=== PATIENT | female | born 1970 | race African-American/Black ===

== ENCOUNTER 2016-05-12 22:18 | Emergency (ER) | payer OTHER ==
[~2016-05-12] VITALS: Ht 162.6 cm; Wt 104.3 kg
--- NOTE | ~2016-05-12 | EKG ---
[place] [address] [facility] [place] [address] ELECTROCARDIOGRAM REPORT Name: JOELLE ARMSTRONG [facility] [id number] Admission: 05/12/16 Attend Phys: Discharge: 05/13/16 Date of : 74 Report #: [id number] THIS REPORT FOR: //name// [facility] ED Test Date: 2016-05-12 Test Time: 22:24:11 Pat Name: JOELLE ARMSTRONG Department: Room: Gender: F Site Acquisition Manager: EARLENE : 1970 Requested By: Salima Calles Order Number: [id number] MD: Lawrence Barker Measurements Intervals [place] Rate: 51 P: 1 SC: 208 QRS: -33 QRSD: 112 T: -78 QT: 420 QTc: 387 Interpretive Statements Sinus rhythm Borderline prolonged SC interval Left ventricular hypertrophy Nonspecific T abnormalities, diffuse leads No previous ECG available for comparison Electronically Signed On 05-13-2016 11:27:17 CDT by Lawrence Barker [email or web address] <ELECTRONICALLY SIGNED> By: Lawrence Barker MD 05/13/16 1127 2224 2224 Lawrence Barker MD /SEAN
--- NOTE | ~2016-05-12 | EKG ---
[place] [address] [facility] [employer] [place] [address] ELECTROCARDIOGRAM REPORT Name: JOELLE ARMSTRONG Room [facility]: [facility]P [facility] [id number] Admission: 05/12/16 Attend Phys: Discharge: 05/13/16 Date of : 74 Report #: [id number] THIS REPORT FOR: //name// [facility] ED Test Date: 2016-05-13 Test Time: 00:50:06 Pat Name: JOELLE ARMSTRONG Department: Room: Gender: F Fast Food Team Member: EARLENE : 1970 Requested By: Salima Calles Order Number: [id number] MD: Lawrence Barker Measurements Intervals [place] Rate: 52 P: 55 NC: 213 QRS: -25 QRSD: 117 T: -51 QT: 465 QTc: 433 Interpretive Statements Sinus rhythm Prolonged NC interval Left ventricular hypertrophy Nonspecific T abnormalities, diffuse leads No previous ECG available for comparison Electronically Signed On 05-13-2016 11:28:33 CDT by Lawrence Barker [email or web address] <ELECTRONICALLY SIGNED> By: Lawrence Barker MD 05/13/16 1128 0050 0050 Lawrence Barker MD /EPI
[~2016-05-12 22:18] MED LIST: AMBIEN 5 MG TABL5 M1 PO; AMLODIPINE BESY10 MG PO; BACTRIM DS TAB1 EACH PO; BENTYL20 MG PO; CEFTIN500 MG PO; CLIMARA TOP; CLONAZEPAM 0.50.5 M1; COLACE100 MG PO; DENIES ANY MEDS; EXCEDRIN CAPLE1 EACH; FISHOIL; FISHOIL PO; FLAGYL500 MG PO; HYDROCODON-ACE1 EAC1 PO; HYDROCODON-ACE1 EAC5 PO; IBUPROFEN 600600 M1 PO; IBUPROFEN 800800 M1 PO; IRON325 PO; KEFLEX500 MG PO; LIORESAL 10 MG10 MG PO; LISINOPRIL-HCT1 EAC1 PO; LISINOPRIL-HCT1 EACH PO; MOM; NORCO 5-325 TA1 EACH PO; NORVASC 5 MG TAB5 MG PO; PERCOCET 5-3251 EACH PO; PHENERGAN 25 MG25 MG PO; PREDNISONE 20 M20 M1 PO; PRILOSEC 20 MG20 MG PO; PROVENTIL HFA6.7 G1 INH; PULMICORT0.25 MG/3 INH; STEROID; TESSALON PERLE100 MG PO; TOPROL XL50 MG; VITAMIN D35000 UNIT; VITAMIN D400 UNI1 PO; ZANTAC 150MG T150 MG PO; ZOFRAN 4 MG ORAL4 M1 DIS; ZOFRAN ODT4 MG PO; ZOFRAN4 MG PO; ZPAK PO
[2016-05-12 22:46] LABS: ABSOLUTE NEUTROPHILS 3.5 thou/uL (1.4-8.2); BASOPHILS 0.8 % (0.0-2.0); EOSINOPHILS 1.7 % (0.0-3.0); HEMATOCRIT 38.2 % (37.0-47.0); HEMOGLOBIN 12.9 gm/dL (12.0-15.0); LYMPHOCYTES 26.5 % (24.0-44.0); MCH 28.7 pg (26.0-34.0); MCHC 33.8 g/dL (28.0-37.0); MCV 84.8 fL (80.0-100.0); MONOCYTES 5.9 % (1.0-8.0); PLATELET COUNT 230 thou/uL (150-400); POLYS 65.1 % (36.0-66.0); RBC 4.51 mil/uL (4.20-5.00); RDW 14.3 % (10.5-14.5); WBC 5.4 thou/uL (4.0-11.0)
[2016-05-12 22:47] LABS: MANUAL DIFF NO
[2016-05-12 22:56] LABS: ANION GAP 9 mmol/L (7-16); BUN 15 mg/dL (7-18); CALCIUM 8.6 mg/dL (8.5-10.1); CHLORIDE 109 mmol/L (98-107); CO2 26 mmol/L (21-32); CREATININE 0.9 mg/dL (0.6-1.3); GLUCOSE 103 mg/dL (70-99); POTASSIUM 3.5 mmol/L (3.5-5.1); SODIUM 144 mmol/L (136-145)
[2016-05-12 22:59] LABS: APTT 28.3 Seconds (24.5-32.8)
[2016-05-12 23:06] LABS: ALBUMIN 3.3 g/dL (3.4-5.0); ALKALINE PHOSPHATASE 81 U/L (46-116); NT-PRO BRAIN NAT PEPTIDE 36 pg/mL (<300); SGOT 20 U/L (15-37); SGPT 41 U/L (30-65); TOTAL BILIRUBIN 0.1 mg/dL (<0.1-1.0); TOTAL PROTEIN 6.3 g/dL (6.4-8.2); TROPONIN-I < 0.04 ng/mL (<0.04-0.07)
[2016-05-12 23:25] LABS: URINE BILIRUBIN NEGATIVE (Negative); URINE BLOOD TRACE (Negative); URINE COLOR YELLOW; URINE GLUCOSE-RANDOM* NEGATIVE (Negative); URINE KETONES NEGATIVE (Negative); URINE LEUKOCYTES-REFLEX NEGATIVE (Negative); URINE PROTEIN (DIPSTICK) NEGATIVE (Negative); URINE UROBILINOGEN 0.2 E.U./dl (0.2-1.0)
[2016-05-13] MEDS ORDERED: BUTALB-APAP-CA1 EACH PO (01:15)
[2016-05-13] MEDS ORDERED: ZOFRAN ODT4 MG PO (01:15)
[2016-05-13 01:32] VITALS: BP 147/85
== END 2016-05-13 01:34 | disposition home or self-care (01) ==
LOC: ER 22:18
PROVIDERS: Emergency Medicine
DX: G43.909 Migraine, unspecified, not intractable, without status migrainosus (principal); R07.9 Chest pain, unspecified; R11.0 Nausea; I10 Essential (primary) hypertension; K21.9 Gastro-esophageal reflux disease without esophagitis; Z85.89 Personal history of malignant neoplasm of other organs and systems; Z88.0 Allergy status to penicillin

== ENCOUNTER 2016-10-23 19:38 | Inpatient (IN) | payer OTHER ==
[~2016-10-23] VITALS: Ht 165.1 cm; Wt 113.4 kg
[~2016-10-23 19:38] MED LIST changes: +BUTALB-APAP-CA1 EACH PO
[2016-10-23 19:40] VITALS: BP 140/86
[2016-10-23 20:35] LABS: URINE BILIRUBIN NEGATIVE (Negative); URINE BLOOD 2+ (Negative); URINE COLOR YELLOW; URINE GLUCOSE-RANDOM* NEGATIVE (Negative); URINE KETONES NEGATIVE (Negative); URINE LEUKOCYTES-REFLEX NEGATIVE (Negative); URINE PROTEIN (DIPSTICK) NEGATIVE (Negative); URINE SPECIFIC GRAVITY 1.025 (1.003-1.035); URINE UROBILINOGEN 0.2 E.U./dl (0.2-1.0)
[2016-10-23 20:38] LABS: CRYSTALS None Seen /LPF (None Seen); SQUAMOUS 0-3 Few /LPF (0-3); URINE RBC 3-10 Few /HPF (0-2); URINE WBC-REFLEX None Seen /HPF (0-5)
[2016-10-23 21:01] LABS: ABSOLUTE NEUTROPHILS 4.1 thou/uL (1.4-8.2); BASOPHILS 0.7 % (0.0-2.0); EOSINOPHILS 1.4 % (0.0-3.0); HEMATOCRIT 38.6 % (37.0-47.0); HEMOGLOBIN 12.9 gm/dL (12.0-15.0); LYMPHOCYTES 22.8 % (24.0-44.0); MCH 28.4 pg (26.0-34.0); MCHC 33.4 g/dL (28.0-37.0); MCV 85.1 fL (80.0-100.0); MONOCYTES 3.9 % (1.0-8.0); PLATELET COUNT 249 thou/uL (150-400); POLYS 71.2 % (36.0-66.0); RBC 4.53 mil/uL (4.20-5.00); RDW 14.7 % (10.5-14.5); WBC 5.7 thou/uL (4.0-11.0)
[2016-10-23 21:05] LABS: MANUAL DIFF NO
[2016-10-23 21:08] LABS: ANION GAP 10 mmol/L (7-16); BUN 14 mg/dL (7-18); CALCIUM 9.2 mg/dL (8.5-10.1); CHLORIDE 106 mmol/L (98-107); CO2 28 mmol/L (21-32); CREATININE 0.7 mg/dL (0.6-1.0); GLUCOSE 120 mg/dL (74-106); SODIUM 144 mmol/L (136-145)
[2016-10-23 21:14] LABS: POTASSIUM 2.9 mmol/L (3.5-5.1)
[2016-10-23 21:15] LABS: ALKALINE PHOSPHATASE 91 U/L (46-116); DIRECT BILIRUBIN < 0.1 mg/dL (<0.1-0.3); SGOT 18 U/L (15-37); SGPT 38 U/L (30-65); TOTAL BILIRUBIN 0.2 mg/dL (<0.1-1.0); TOTAL PROTEIN 6.7 g/dL (6.4-8.2)
[2016-10-23 21:16] LABS: ALBUMIN 3.9 g/dL (3.4-5.0)
[2016-10-23 23:02] VITALS: BP 148/88
[2016-10-23 23:43] VITALS: BP 146/86
[2016-10-23 23:45] VITALS: BP 137/89
[2016-10-24 04:30] VITALS: BP 120/78
[2016-10-24 07:54] VITALS: BP 127/84
[2016-10-24 15:42] VITALS: BP 107/73
[2016-10-24 19:40] VITALS: BP 145/89
[2016-10-25 09:21] VITALS: BP 132/96
[2016-10-25] MEDS ORDERED: PHENERGAN 25 MG25 M1 PO (09:45)
[2016-10-25] MEDS ORDERED: HYDROCODON-ACE1 EAC8 PO (09:46)
[2016-10-25 12:58] VITALS: BP 132/96
== END 2016-10-25 14:43 | disposition home or self-care (01) | DRG 694 ==
LOC: ER 19:38 → 4E 22:52 → EROBS 22:52 → 4E 23:33 → ENTRNSPT 10-25 14:01 → EDTRNSPTSTS 10-25 14:04 → 4E 10-25 14:43
PROVIDERS: Emergency Medicine
DX: N20.2 Calculus of kidney with calculus of ureter (principal); K44.9 Diaphragmatic hernia without obstruction or gangrene; I10 Essential (primary) hypertension; K21.9 Gastro-esophageal reflux disease without esophagitis; N20.1 Calculus of ureter; K59.00 Constipation, unspecified; M35.00 Sjogren syndrome, unspecified; E87.6 Hypokalemia; Z90.710 Acquired absence of both cervix and uterus; Z85.89 Personal history of malignant neoplasm of other organs and systems; Z79.899 Other long term (current) drug therapy; Z72.89 Other problems related to lifestyle; Z87.440 Personal history of urinary (tract) infections; Z88.0 Allergy status to penicillin
CPT/HCPCS: 10084

== ENCOUNTER → 2016-10-30 | Outpatient (CLI) | payer OTHER ==
[~2016-10-30] MED LIST changes: +HYDROCODON-ACE1 EAC8 PO; +PHENERGAN 25 MG25 M1 PO
== END | disposition home or self-care (01) ==
LOC: LITH 06:19
DX: N20.0 Calculus of kidney (principal); Z98.890 Other specified postprocedural states

== ENCOUNTER 2017-02-06 10:57 | Emergency (ER) | payer OTHER ==
[~2017-02-06] VITALS: Ht 165.1 cm; Wt 111.1 kg
--- NOTE | ~2017-02-06 | EKG ---
[place] [address] [place] [address] ELECTROCARDIOGRAM REPORT Name: ARMSTRONGJOELLE Room #: DEP [facility]#: [id number] Admission: 02/06/17 Attend Phys: Discharge: 02/06/17 Date of : 74 Report #: [id number] THIS REPORT FOR: //name// [facility] ED Test Date: 2017-02-06 Test Time: 11:11:18 Pat Name: JOELLE ARMSTRONG Department: Room: Gender: F Electrical Engineer Mep: Samantha LI : 1970 Requested By: Bigg Pitst Order Number: [id number] MD: Jacob Jimenez Measurements Intervals [place] Rate: 45 P: 15 [place]: 208 QRS: -24 QRSD: 117 T: -2 QT: 449 QTc: 389 Interpretive Statements Sinus bradycardia Left ventricular hypertrophy Borderline T abnormalities, inferior leads Compared to ECG 05/13/2016 00:50:06 ST and T wave abnormality is less pronounced Electronically Signed On 02-07-2017 7:49:54 HORTICULTURAL WORKER by Jacob Jimenez [email or web address] <ELECTRONICALLY SIGNED> By: Jacob Jimenez MD, [facility] 02/07/17 0749 1111 1111 Jacob Jimenez MD, FACC /EPI
[2017-02-06 11:39] LABS: ABSOLUTE NEUTROPHILS 3.9 thou/uL (1.4-8.2); BASOPHILS 1.3 % (0.0-2.0); EOSINOPHILS 1.8 % (0.0-3.0); HEMATOCRIT 37.8 % (37.0-47.0); HEMOGLOBIN 12.8 gm/dL (12.0-15.0); LYMPHOCYTES 21.5 % (24.0-44.0); MCH 28.9 pg (26.0-34.0); MCHC 33.8 g/dL (28.0-37.0); MCV 85.3 fL (80.0-100.0); MONOCYTES 4.8 % (1.0-8.0); PLATELET COUNT 281 thou/uL (150-400); POLYS 70.6 % (36.0-66.0); RBC 4.43 mil/uL (4.20-5.00); WBC 5.5 thou/uL (4.0-11.0)
[2017-02-06 11:40] LABS: MANUAL DIFF NO
[2017-02-06 11:44] LABS: ANION GAP 7 mmol/L (7-16); BUN 15 mg/dL (7-18); CALCIUM 9.2 mg/dL (8.5-10.1); CHLORIDE 108 mmol/L (98-107); CO2 30 mmol/L (21-32); CREATININE 0.8 mg/dL (0.6-1.0); GLUCOSE 98 mg/dL (74-106); POTASSIUM 3.9 mmol/L (3.5-5.1); SODIUM 145 mmol/L (136-145)
[2017-02-06 11:52] LABS: ALKALINE PHOSPHATASE 89 U/L (46-116); SGOT 22 U/L (15-37); SGPT 39 U/L (30-65); TOTAL BILIRUBIN 0.3 mg/dL (<0.1-1.0); TOTAL PROTEIN 6.7 g/dL (6.4-8.2); TROPONIN-I < 0.04 ng/mL (<0.06)
[2017-02-06 13:23] LABS: URINE BILIRUBIN NEGATIVE (Negative); URINE BLOOD 1+ (Negative); URINE COLOR YELLOW; URINE GLUCOSE-RANDOM* NEGATIVE (Negative); URINE KETONES NEGATIVE (Negative); URINE LEUKOCYTES-REFLEX NEGATIVE (Negative); URINE PROTEIN (DIPSTICK) NEGATIVE (Negative); URINE UROBILINOGEN 0.2 E.U./dl (0.2-1.0)
[2017-02-06 13:29] LABS: CASTS None Seen /LPF (None Seen); CRYSTALS None Seen /LPF (None Seen); SQUAMOUS 4-10 Moderate /LPF (0-3); URINE RBC 3-10 Few /HPF (0-2); URINE WBC-REFLEX 0-5 Rare /HPF (0-5)
[2017-02-06] MEDS ORDERED: HYDROCODONE-AP1 EAC6 PO (14:09)
[2017-02-06] MEDS ORDERED: ZOFRAN ODT4 M1 PO (14:09)
[2017-02-06] MEDS ORDERED: FLOMAX0.4 MG PO (14:09)
== END 2017-02-06 14:10 | disposition home or self-care (01) ==
LOC: ER 10:57
PROVIDERS: Physician Assistant
DX: R10.13 Epigastric pain (principal); N20.0 Calculus of kidney; I10 Essential (primary) hypertension; K21.9 Gastro-esophageal reflux disease without esophagitis; F41.9 Anxiety disorder, unspecified; G47.33 Obstructive sleep apnea (adult) (pediatric); Z88.0 Allergy status to penicillin

== ENCOUNTER 2017-08-30 12:30 | Emergency (ER) | payer OTHER ==
[~2017-08-30] VITALS: Ht 162.6 cm; Wt 104.3 kg
[~2017-08-30 12:30] MED LIST changes: +FLOMAX0.4 MG PO; +HYDROCODONE-AP1 EAC6 PO; +ZOFRAN ODT4 M1 PO
[2017-08-30 13:02] LABS: URINE BILIRUBIN NEGATIVE (Negative); URINE BLOOD 2+ (Negative); URINE CLARITY CLEAR; URINE COLOR YELLOW; URINE GLUCOSE-RANDOM* NEGATIVE (Negative); URINE KETONES 1+ (Negative); URINE LEUKOCYTES-REFLEX NEGATIVE (Negative); URINE NITRITE-REFLEX NEGATIVE (Negative); URINE PROTEIN (DIPSTICK) NEGATIVE (Negative); URINE SPECIFIC GRAVITY >= 1.030 (1.005-1.035); URINE UROBILINOGEN 0.2 E.U./dl (0.2-1.0)
[2017-08-30 13:11] LABS: BASOPHILS 1.1 % (0.0-2.0); EOSINOPHILS 1.3 % (0.0-3.0); HEMATOCRIT 40.6 % (37.0-47.0); HEMOGLOBIN 13.9 gm/dL (12.0-15.0); LYMPHOCYTES 17.4 % (24.0-44.0); MCH 28.8 pg (26.0-34.0); MCHC 34.4 g/dL (28.0-37.0); MCV 83.8 fL (80.0-100.0); MONOCYTES 4.9 % (1.0-8.0); PLATELET COUNT 270 thou/uL (150-400); POLYS 75.3 % (36.0-66.0); RBC 4.84 mil/uL (4.20-5.00); RDW 14.4 % (10.5-14.5); WBC 6.6 thou/uL (4.0-11.0)
[2017-08-30 13:19] LABS: CALCIUM 8.4 mg/dL (8.5-10.1); POTASSIUM 3.2 mmol/L (3.5-5.1)
[2017-08-30 13:25] LABS: ALBUMIN 3.6 g/dL (3.4-5.0); TOTAL BILIRUBIN 0.2 mg/dL (<0.1-1.0); TOTAL PROTEIN 6.8 g/dL (6.4-8.2)
[2017-08-30 13:40] LABS: BACTERIA-REFLEX 1-9 Few /HPF (None Seen); CASTS None Seen /LPF (None Seen); CRYSTALS None Seen /LPF (None Seen); MUCUS >6 Heavy strn/LPF (None Seen); SQUAMOUS 4-10 Moderate /LPF (0-3); URINE RBC 3-10 Few /HPF (0-2); URINE WBC-REFLEX 0-5 Rare /HPF (0-5)
[2017-08-30] MEDS ORDERED: MACROBID 100 M100 M1 PO (14:40)
[2017-08-30] MEDS ORDERED: MOBIC15 MG PO (14:40)
[2017-08-30] MEDS ORDERED: ZOFRAN ODT4 MG PO (14:40)
== END 2017-08-30 15:36 | disposition home or self-care (01) ==
LOC: ER 12:30
PROVIDERS: Physician Assistant
DX: R10.9 Unspecified abdominal pain (principal); R11.0 Nausea; N39.0 Urinary tract infection, site not specified; R51 Headache; K08.89 Other specified disorders of teeth and supporting structures; I10 Essential (primary) hypertension; K21.9 Gastro-esophageal reflux disease without esophagitis; F41.9 Anxiety disorder, unspecified; G47.33 Obstructive sleep apnea (adult) (pediatric); Z88.0 Allergy status to penicillin

== ENCOUNTER 2018-02-22 13:23 | Emergency (ER) | payer OTHER ==
[~2018-02-22] VITALS: Ht 165.1 cm; Wt 104.3 kg
[~2018-02-22 13:23] MED LIST changes: +MACROBID 100 M100 M1 PO; +MOBIC15 MG PO
[2018-02-22 13:52] LABS: ABSOLUTE NEUTROPHILS 5.6 thou/uL (1.4-8.2); BASOPHILS 0.9 % (0.0-2.0); EOSINOPHILS 0.4 % (0.0-3.0); HEMOGLOBIN 14.9 gm/dL (12.0-15.0); LYMPHOCYTES 14.3 % (24.0-44.0); MCH 27.7 pg (26.0-34.0); MCHC 33.2 g/dL (28.0-37.0); MCV 83.7 fL (80.0-100.0); PLATELET COUNT 334 thou/uL (150-400); POLYS 80.4 % (36.0-66.0); RBC 5.38 mil/uL (4.20-5.00); RDW 14.3 % (10.5-14.5)
[2018-02-22 14:10] LABS: ANION GAP 11 mmol/L (7-16); BUN 12 mg/dL (7-18); CALCIUM 9.6 mg/dL (8.5-10.1); CHLORIDE 105 mmol/L (98-107); CO2 26 mmol/L (21-32); GLUCOSE 121 mg/dL (74-106); POTASSIUM 3.2 mmol/L (3.5-5.1); SODIUM 142 mmol/L (136-145); TROPONIN-I <0.06 ng/mL (<0.06)
[2018-02-22 14:11] LABS: SALICYLATE 22.5 mg/dL (2.8-20.0); SGOT 23 U/L (15-37); SGPT 39 U/L (30-65); TOTAL BILIRUBIN 0.2 mg/dL (<0.1-1.0)
[2018-02-22 14:23] LABS: DIRECT BILIRUBIN < 0.1 mg/dL (<0.1-0.3)
[2018-02-22 16:10] LABS: AMP/METHAMP Negative (Negative); BARBITURATES Negative (Negative); BENZODIAZEPINES Negative (Negative); COCAINE Negative (Negative); METHADONE Negative (Negative); OPIATES Negative (Negative); PCP Negative (Negative)
[2018-02-23] MEDS ORDERED: CLEOCIN HCL150 MG PO (09:19)
[2018-02-23] MEDS ORDERED: IBUPROFEN 800800 MG PO (09:19)
[2018-02-23] MEDS ORDERED: TRAMADOL 50 MG50 MG PO (09:19)
[2018-02-23 09:43] VITALS: BP 153/104
--- NOTE | 2018-02-23 21:57 | EKG ---
[place] [address] [facility] [place] [address] ELECTROCARDIOGRAM REPORT Name: JOELLE ARMSTRONG [facility] [id number] Admission: 02/22/18 Attend Phys: Discharge: 02/23/18 Date of : 74 Report #: [id number] THIS REPORT FOR: //name// [facility] ED Test Date: 2018-02-22 Test Time: 13:39:50 Pat Name: JOELLE ARMSTRONG Department: Room: Gender: F Topographical Drafter: W[place] : 1970 Requested By: Bigg Pitts Order Number: [id number] MD: Andriy Moya Measurements Intervals [place] Rate: 100 P: 53 ND: 198 QRS: -39 QRSD: 96 T: 73 QT: 326 QTc: 421 Interpretive Statements Sinus tachycardia Borderline prolonged ND interval Abnormal R-wave progression, late transition Left ventricular hypertrophy Nonspecific T abnormalities, anterior leads Compared to ECG 02/06/2017 11:11:18 Sinus bradycardia no longer present T-wave abnormality still present Electronically Signed On 02-23-2018 21:57:26 PLASTIC CABLEMAKING MACHINE OPERATOR by Andriy Moya [email or web address] <ELECTRONICALLY SIGNED> By: Andriy Moya MD 02/23/18 2157 1339 1339 Andriy Moya MD /EPI
== END 2018-02-23 09:44 | disposition home or self-care (01) ==
LOC: ER 13:23
PROVIDERS: Emergency Medicine; Physician Assistant
DX: T39.011A Poisoning by aspirin, accidental (unintentional), initial encounter (principal); K04.7 Periapical abscess without sinus; F32.9 Major depressive disorder, single episode, unspecified; R11.2 Nausea with vomiting, unspecified; K02.9 Dental caries, unspecified; R45.851 Suicidal ideations; I10 Essential (primary) hypertension; K21.9 Gastro-esophageal reflux disease without esophagitis; G47.33 Obstructive sleep apnea (adult) (pediatric); F41.9 Anxiety disorder, unspecified; Z85.42 Personal history of malignant neoplasm of other parts of uterus; Z88.0 Allergy status to penicillin; Y92.89 Other specified places as the place of occurrence of the external cause

== ENCOUNTER 2019-05-11 09:08 | Emergency (ER) | payer OTHER ==
[~2019-05-11] VITALS: Ht 162.6 cm; Wt 72.6 kg
[~2019-05-11 09:08] MED LIST changes: +CLEOCIN HCL150 MG PO; +IBUPROFEN 800800 MG PO; +TRAMADOL 50 MG50 MG PO
[2019-05-11 09:49] LABS: URINE BILIRUBIN NEGATIVE (Negative); URINE BLOOD 1+ (Negative); URINE CLARITY CLEAR; URINE COLOR YELLOW; URINE GLUCOSE-RANDOM* NEGATIVE (Negative); URINE KETONES NEGATIVE (Negative); URINE LEUKOCYTES-REFLEX NEGATIVE (Negative); URINE NITRITE-REFLEX NEGATIVE (Negative); URINE PROTEIN (DIPSTICK) NEGATIVE (Negative); URINE SPECIFIC GRAVITY >= 1.030 (1.005-1.035); URINE UROBILINOGEN 0.2 E.U./dl (0.2-1.0)
[2019-05-11 09:53] LABS: ABSOLUTE NEUTROPHILS 5.3 thou/uL (1.4-8.2); BASOPHILS 0.7 % (0.0-2.0); EOSINOPHILS 1.1 % (0.0-3.0); HEMATOCRIT 46.1 % (37.0-47.0); HEMOGLOBIN 15.3 gm/dL (12.0-15.0); LYMPHOCYTES 14.7 % (24.0-44.0); MCH 29.5 pg (26.0-34.0); MCHC 33.3 g/dL (28.0-37.0); MCV 88.8 fL (80.0-100.0); MONOCYTES 6.3 % (1.0-8.0); PLATELET COUNT 261 thou/uL (150-400); POLYS 77.2 % (36.0-66.0); RBC 5.19 mil/uL (4.20-5.00); RDW 14.9 % (10.5-14.5); WBC 6.9 thou/uL (4.0-11.0)
[2019-05-11 10:01] LABS: POTASSIUM 3.6 mmol/L (3.5-5.1)
[2019-05-11 10:07] LABS: ALBUMIN 3.5 g/dL (3.4-5.0); TOTAL BILIRUBIN 0.2 mg/dL (<0.1-1.0); TOTAL PROTEIN 7.6 g/dL (6.4-8.2)
[2019-05-11 10:10] LABS: CASTS None Seen /LPF (None Seen); MUCUS >6 Heavy strn/LPF (None Seen); SQUAMOUS >10 Many /LPF (0-3)
[2019-05-11 10:11] LABS: CRYSTALS None Seen /LPF (None Seen); URINE RBC 0-2 Rare /HPF (0-2); URINE WBC-REFLEX 0-5 Rare /HPF (0-5)
[2019-05-11] MEDS ORDERED: ZOFRAN ODT4 MG PO (11:54)
[2019-05-11] MEDS ORDERED: CIPROFLOXACIN500 M1 PO (11:54)
[2019-05-11] MEDS ORDERED: PYRIDIUM200 MG PO (11:54)
[2019-05-11 12:00] VITALS: BP 116/57
== END 2019-05-11 12:01 | disposition home or self-care (01) ==
LOC: ER 09:08
PROVIDERS: Emergency Medicine
DX: N10 Acute pyelonephritis (principal); I10 Essential (primary) hypertension; K21.9 Gastro-esophageal reflux disease without esophagitis; F41.9 Anxiety disorder, unspecified; Z88.0 Allergy status to penicillin; Z79.899 Other long term (current) drug therapy